=== PATIENT | male | born 1930 | race Two or more races ===

== ENCOUNTER 2017-04-22 18:32 | Emergency (ER) | payer MEDICARE, MEDICAID ==
[~2017-04-22] VITALS: Ht 160 cm; Wt 54.4 kg
[2017-04-22] MEDS ORDERED: NITROGLYCERIN 0.2MG/HR TOPICAL PATCH TD ONE (19:00)
[2017-04-22] MEDS ORDERED: ONDANSETRON HCL 4 MG/2 ML VIAL IV ONE (19:00)
[2017-04-22] MEDS ORDERED: MORPHINE SULF INJ 2 MG/ML SYRINGE 1ML IV ONE ×2 (19:00→23:00)
[2017-04-22 19:22] LABS: Basophils # (auto) 0.1 uL; Basophils % (auto) 0.4 % (0.0-2.0); Eosinophils # (auto) 0.1 uL; Eosinophils % (auto) 0.7 % (0.0-7.0); Hematocrit 49.7 % (41.0-53.0); Hemoglobin 16.4 g/dL (13.5-17.5); Lymphocytes # (auto) 1.3 uL; Lymphocytes % (auto) 10.7 % (10.0-50.0); Mean Corpuscular Hemoglobin 31.9 pg (28.0-32.0); Mean Corpuscular Volume 96.6 fL (80.0-100.0); Monocytes # (auto) 0.6 uL; Monocytes % (auto) 4.6 % (0.0-12.0); Neutrophils # (auto) 10.5 uL; Neutrophils % (auto) 83.6 % (37.0-80.0); Platelet Count (auto) 362 10^3/uL (140-450); Red Cell Distribution Width 16.7 % (11.8-14.3); White Blood Cell 12.6 10^3/uL (4.4-10.8)
[2017-04-22] MEDS ORDERED: ENOXAPARIN SOD 60 MG/0.6 ML SYRINGE SC ONE (19:30)
[2017-04-22 19:40] LABS: Albumin 3.8 g/dL (3.4-5.0); BUN/Creatinine Ratio 15.9; Calcium 9.1 mg/dL (8.5-10.1); Potassium 4.6 mmol/L (3.5-5.1)
[2017-04-22 19:45] LABS: Bilirubin, Total 0.7 mg/dL (0.2-1.0); Total Protein 9.1 g/dL (6.4-8.2)
[2017-04-22] MEDS ORDERED: PANTOPRAZOLE 40 MG/10 ML VIAL IV ONE ×2 (20:02→20:15)
[2017-04-22 20:20] LABS: INR 1.01 (0.9-1.15); Partial Thromboplastin Time 30.3 sec (22.64-33.71)
[2017-04-22 22:00] LABS: Temperature: 22.4 C (20.0-25.0)
[2017-04-22] MEDS ORDERED: LEVOFLOXACIN 750MG 150 ML IV ONE (23:45)
[2017-04-23 01:15] VITALS: BP 118/69
[2017-04-23] MEDS ORDERED: HYDROmorphone HCL 2 MG/ML VL IV ONE (01:45)
[2017-04-23] MEDS ORDERED: ONDANSETRON HCL 4 MG/2 ML VIAL IV ONE (01:45)
[2017-04-23] MEDS ORDERED: MORPHINE SULF INJ 2 MG/ML SYRINGE 1ML IV ONE (02:00)
== END 2017-04-23 02:34 | disposition short-term general hospital (02) ==
LOC: ER 18:32
DX: I73.9 Peripheral vascular disease, unspecified (principal); J18.9 Pneumonia, unspecified organism; M79.662 Pain in left lower leg; J45.909 Unspecified asthma, uncomplicated; I10 Essential (primary) hypertension
CPT/HCPCS: 36415; 71020; 80053; 83880; 84484; 85025; 85379; 85610; 85730; 87040; 93005; 93926; 96365; 96366; 96372; 96375; 96376; 99285; C9113; J1650; J1956; J2270; J2405

== ENCOUNTER 2017-05-27 18:22 | Inpatient (IN) | payer MEDICAID, MEDICARE ==
[~2017-05-27] VITALS: Ht 160 cm; Wt 56.6 kg
[2017-05-27] MEDS ORDERED: methylPREDNISolone SOD SUCC 125 MG/2 ML VL IV ONE (18:45)
[2017-05-27] MEDS ORDERED: ALBUTEROL SULF 2.5 MG/0.5ML(0.5%) NEB SOLN HHN ONE (19:00)
[2017-05-27] MEDS ORDERED: IPRATROPIUM BROM 0.5 MG/2.5ML INH SOL HHN ONE (19:00)
[2017-05-27] MEDS ORDERED: MORPHINE SULF INJ 2 MG/ML SYRINGE 1ML IV ONE ×2 (20:45→22:45)
[2017-05-27] MEDS ORDERED: ONDANSETRON HCL 4 MG/2 ML VIAL IV ONE ×2 (20:45→22:45)
[2017-05-27 20:52] LABS: Basophils # (auto) 0 uL; Basophils % (auto) 0.3 % (0.0-2.0); Hemoglobin 13.3 g/dL (13.5-17.5); Lymphocytes # (auto) 0.4 uL; Monocytes # (auto) 0.2 uL
[2017-05-27 20:53] LABS: Eosinophils # (auto) 0 uL; Eosinophils % (auto) 0.4 % (0.0-7.0); Hematocrit 39.8 % (41.0-53.0); Lymphocytes % (auto) 2.8 % (10.0-50.0); Mean Corpuscular Hemoglobin 31.5 pg (28.0-32.0); Mean Corpuscular Hgb Conc. 33.3 g/dL (32.0-36.0); Mean Corpuscular Volume 94.4 fL (80.0-100.0); Monocytes % (auto) 1.9 % (0.0-12.0); Neutrophils # (auto) 12.1 uL; Neutrophils % (auto) 94.6 % (37.0-80.0); Platelet Count (auto) 577 10^3/uL (140-450); Red Blood Cells 4.21 10^6/uL (4.5-5.90); Red Cell Distribution Width 16.3 % (11.8-14.3); White Blood Cell 12.8 10^3/uL (4.4-10.8)
[2017-05-27] MEDS ORDERED: cefTRIAXone 1GM/10ml IVPUSH 10 ML IV ONE (21:15)
[2017-05-27] MEDS ORDERED: AZITHROMYCIN 500MG/ 250ML 250 ML IV ONE ×2 (21:15→23:45)
[2017-05-27 21:30] LABS: BUN/Creatinine Ratio 20.8; Bilirubin, Total 0.4 mg/dL (0.2-1.0); Calcium 8.8 mg/dL (8.5-10.1); Potassium 5.4 mmol/L (3.5-5.1); Total Protein 8.3 g/dL (6.4-8.2)
[2017-05-27 22:37] VITALS: BP 111/66
[2017-05-27] MEDS ORDERED: ASPirin 81 mg TAB PO ONE (22:45)
[2017-05-27] MEDS ORDERED: ACETAMINOPHEN 325 MG TAB PO PRN (23:45)
[2017-05-27] MEDS ORDERED: ENOXAPARIN SOD 30 MG/0.3 ML SYRINGE SC ONE (23:45)
[2017-05-27] MEDS ORDERED: NITROGLYCERIN 0.4 MG SL TAB SL PRN (23:45)
[2017-05-28] VITALS (7 sets, daily range): BP systolic 86–132; BP diastolic 41–76
[2017-05-28 06:27] LABS: Basophils # (auto) 0 uL; Basophils % (auto) 0.2 % (0.0-2.0); Eosinophils # (auto) 0 uL; Lymphocytes # (auto) 0.3 uL; Neutrophils # (auto) 6.6 uL
[2017-05-28 06:30] LABS: Hematocrit 36.7 % (41.0-53.0); Hemoglobin 12.2 g/dL (13.5-17.5); Lymphocytes % (auto) 4.7 % (10.0-50.0); Mean Corpuscular Hemoglobin 31.3 pg (28.0-32.0); Mean Corpuscular Hgb Conc. 33.3 g/dL (32.0-36.0); Monocytes # (auto) 0.1 uL; Neutrophils % (auto) 93.1 % (37.0-80.0); Platelet Count (auto) 509 10^3/uL (140-450); Red Blood Cells 3.91 10^6/uL (4.5-5.90); Red Cell Distribution Width 16.2 % (11.8-14.3); White Blood Cell 7.1 10^3/uL (4.4-10.8)
[2017-05-28 06:47] LABS: Albumin 2.6 g/dL (3.4-5.0); BUN/Creatinine Ratio 22.9; Bilirubin, Total 0.3 mg/dL (0.2-1.0); Calcium 8.7 mg/dL (8.5-10.1); Potassium 5.3 mmol/L (3.5-5.1); Total Protein 7.6 g/dL (6.4-8.2)
[2017-05-28] MEDS: MORPHINE SULF INJ 2 MG/ML SYRINGE 1ML IV PRN ×5 (06:56→23:18)
[2017-05-28 08:22] LABS: Urine Bacteria NONE SEEN /hpf (None Seen); Urine Blood TRACE /uL (Negative); Urine Hyaline Cast FEW /lpf (0 - 2); Urine Mucus FEW (None Seen); Urine Specific Gravity 1.019 (1.001-1.035); Urine WBC 1 /hpf (0 - 3)
[2017-05-28] MEDS ORDERED: LISINOPRIL 10 MG TAB PO SCH (10:00)
[2017-05-28] MEDS ORDERED: ENOXAPARIN SOD 30 MG/0.3 ML SYRINGE SC SCH (10:00)
[2017-05-28] MEDS: ASPirin 81 mg TAB PO SCH (10:39)
[2017-05-28] MEDS: FAMOTIDINE 20 MG TAB PO SCH (10:39)
[2017-05-28] MEDS: methylPREDNISolone SOD SUCC 125 MG/2 ML VL IV SCH ×2 (10:39→22:10)
[2017-05-28] MEDS: ONDANSETRON HCL 4 MG/2 ML VIAL IV PRN (12:54)
[2017-05-28] MEDS ORDERED: ENOXAPARIN SOD 30 MG/0.3 ML SYRINGE SC ONE (15:45)
[2017-05-28] MEDS ORDERED: cefTRIAXone 1GM/10ml IVPUSH 10 ML IV SCH (22:00)
[2017-05-28] MEDS: ATORVASTATIN 20 MG TAB PO SCH (22:10)
[2017-05-28] MEDS: AZITHROMYCIN 500MG/ 250ML 250 ML IV SCH (22:10)
[2017-05-29 04:16] VITALS: BP 111/54
[2017-05-29] MEDS: ONDANSETRON HCL 4 MG/2 ML VIAL IV PRN ×2 (05:55→12:49)
[2017-05-29] MEDS: MORPHINE SULF INJ 2 MG/ML SYRINGE 1ML IV PRN ×2 (05:55→12:50)
[2017-05-29 06:10] VITALS: BP 106/59
[2017-05-29 06:31] LABS: Hematocrit 35.5 % (41.0-53.0); Hemoglobin 11.6 g/dL (13.5-17.5); Mean Corpuscular Hgb Conc. 32.8 g/dL (32.0-36.0); Mean Corpuscular Volume 94.4 fL (80.0-100.0); Platelet Count (auto) 550 10^3/uL (140-450); Red Blood Cells 3.76 10^6/uL (4.5-5.90); Red Cell Distribution Width 16.2 % (11.8-14.3); White Blood Cell 15.2 10^3/uL (4.4-10.8)
[2017-05-29 06:40] LABS: Calcium 8.5 mg/dL (8.5-10.1)
[2017-05-29 06:41] LABS: BUN/Creatinine Ratio 30.9
[2017-05-29 06:44] LABS: Band Neutrophils % (manual) 0; Basophils % (manual) 0 (0.0-2.0); Blast Cells 0; Eosinophils % (manual) 0 (0-7); Metamyelocytes % 0; Myelocytes % 0; Promyelocytes % 0; Reactive Lymphocytes 0
[2017-05-29 06:47] LABS: Potassium 5.8 mmol/L (3.5-5.1)
[2017-05-29] MEDS ORDERED: SODIUM POLYSTYRENE SULF 15GM/60ML SUSP PO ONE ×2 (07:45→08:30)
[2017-05-29] MEDS ORDERED: DEXTROSE (50%) 50ML SYRG IV ONE ×2 (07:45→08:30)
[2017-05-29] MEDS ORDERED: InsuLIN REG 1unit/0.01ml Soln (100units/ml) IV ONE ×2 (07:45→08:30)
[2017-05-29] MEDS ORDERED: CALCIUM GLUC 4.65meq/50ml D5AE 50 ML IV ONE ×2 (07:45→08:30)
[2017-05-29 08:05] LABS: Lymphocytes % (manual) 2 (10.0-50.0); Monocytes % (manual) 1 (0-12)
[2017-05-29] MEDS ORDERED: ALBUTEROL SULF 2.5 MG/0.5ML(0.5%) NEB SOLN NEB ONE (08:30)
[2017-05-29] MEDS ORDERED: SODIUM BICARBONATE 8.4% INJ 50ML SYRINGE IV ONE (08:30)
[2017-05-29 08:53] VITALS: BP 126/64
[2017-05-29] MEDS ORDERED: FUROSEMIDE 100 MG/10ML VIAL IV ONE (09:30)
[2017-05-29] MEDS: ASPirin 81 mg TAB PO SCH (10:14)
[2017-05-29] MEDS: FAMOTIDINE 20 MG TAB PO SCH (10:14)
[2017-05-29] MEDS: methylPREDNISolone SOD SUCC 125 MG/2 ML VL IV SCH ×2 (10:14→22:41)
[2017-05-29] MEDS: ENOXAPARIN SOD 60 MG/0.6 ML SYRINGE SC SCH (10:15)
[2017-05-29 12:21] VITALS: BP 99/52
[2017-05-29] MEDS: PIPERACILLIN-TAZOB 3.375GM 50 ML IV SCH ×3 (12:46→23:56)
[2017-05-29 13:34] LABS: BUN/Creatinine Ratio 27.4; Calcium 9.1 mg/dL (8.5-10.1); Potassium 4.8 mmol/L (3.5-5.1)
[2017-05-29 14:12] VITALS: BP 101/63
[2017-05-29] MEDS ORDERED: PROMETHAZINE HCL 25 MG/ML 1ML ONE (15:11)
[2017-05-29] MEDS ORDERED: PROMETHAZINE HCL 25 MG/ML 1ML IV ONE (15:15)
[2017-05-29] MEDS: HYDROcodone-ACET 5/325MG TAB PO PRN (15:31)
[2017-05-29 16:08] LABS: INR 1.09 (0.9-1.15); Prothrombin Time 11.9 sec (9.37-12.3)
[2017-05-29] MEDS: IPRATROPIUM BROM 0.5 MG/2.5ML INH SOL NEB PRN (19:19)
[2017-05-29] MEDS: ALBUTEROL SULF 2.5 MG/0.5ML(0.5%) NEB SOLN NEB PRN (19:19)
[2017-05-29 19:35] LABS: Potassium 5.1 mmol/L (3.5-5.1)
[2017-05-29 19:37] LABS: BUN/Creatinine Ratio 24.8; Calcium 8.6 mg/dL (8.5-10.1)
[2017-05-29] MEDS: ATORVASTATIN 20 MG TAB PO SCH (22:33)
[2017-05-29] MEDS: AZITHROMYCIN 500MG/ 250ML 250 ML IV SCH (22:41)
[2017-05-30 06:30] LABS: Basophils # (auto) 0 uL; Eosinophils # (auto) 0 uL; Lymphocytes # (auto) 0.3 uL
[2017-05-30 06:32] LABS: Hematocrit 33.7 % (41.0-53.0); Hemoglobin 10.7 g/dL (13.5-17.5); Lymphocytes % (auto) 1.7 % (10.0-50.0); Mean Corpuscular Hemoglobin 30.1 pg (28.0-32.0); Mean Corpuscular Hgb Conc. 31.8 g/dL (32.0-36.0); Mean Corpuscular Volume 94.7 fL (80.0-100.0); Monocytes # (auto) 0.2 uL; Monocytes % (auto) 1.5 % (0.0-12.0); Neutrophils # (auto) 15.6 uL; Neutrophils % (auto) 96.8 % (37.0-80.0); Platelet Count (auto) 520 10^3/uL (140-450); Red Blood Cells 3.56 10^6/uL (4.5-5.90); Red Cell Distribution Width 16.4 % (11.8-14.3); White Blood Cell 16.1 10^3/uL (4.4-10.8)
[2017-05-30 06:44] LABS: Albumin 2.3 g/dL (3.4-5.0); BUN/Creatinine Ratio 26.6; Bilirubin, Total 0.3 mg/dL (0.2-1.0); Calcium 8.1 mg/dL (8.5-10.1); Phosphorus 3.6 mg/dL (2.5-4.90); Potassium 4.8 mmol/L (3.5-5.1); Total Protein 6.8 g/dL (6.4-8.2); Uric Acid 8.1 mg/dL (3.5-7.2)
[2017-05-30] MEDS: PIPERACILLIN-TAZOB 3.375GM 50 ML IV SCH ×3 (07:39→19:00)
[2017-05-30] MEDS: MORPHINE SULF INJ 2 MG/ML SYRINGE 1ML IV PRN ×3 (07:51→20:50)
[2017-05-30] MEDS: ONDANSETRON HCL 4 MG/2 ML VIAL IV PRN ×2 (07:53→20:50)
[2017-05-30 08:01] VITALS: BP 134/58
[2017-05-30] MEDS: methylPREDNISolone SOD SUCC 125 MG/2 ML VL IV SCH ×2 (11:50→22:00)
[2017-05-30] MEDS: ASPirin 81 mg TAB PO SCH (11:50)
[2017-05-30] MEDS: FAMOTIDINE 20 MG TAB PO SCH (11:50)
[2017-05-30] MEDS: ENOXAPARIN SOD 60 MG/0.6 ML SYRINGE SC SCH (11:50)
[2017-05-30 13:02] VITALS: BP 132/66
[2017-05-30 14:01] VITALS: BP 138/62
[2017-05-30] MEDS ORDERED: D5W/SOD CHLO 0.9% 1,000 ML IV SCH (15:30)
[2017-05-30] MEDS ORDERED: DEXTROSE (50%) 50ML SYRG IV ONE (15:30)
[2017-05-30 15:40] VITALS: BP 103/62
[2017-05-30] MEDS ORDERED: DEXTROSE (50%) 50ML SYRG IV PRN (16:15)
[2017-05-30] MEDS ORDERED: InsuLIN REG 1unit/0.01ml Soln (100units/ml) SC ONE (17:00)
[2017-05-30] MEDS ORDERED: ACCU-CHEK COMFORT CURVE STRIP VI ONE (17:00)
[2017-05-30 17:17] LABS: Urine Bacteria NONE SEEN /hpf (None Seen); Urine Blood TRACE /uL (Negative); Urine Mucus FEW (None Seen); Urine Specific Gravity 1.023 (1.001-1.035); Urine WBC 3 /hpf (0 - 3)
[2017-05-30 17:24] LABS: Creatinine, Urine 88.4 mg/dL (30.0-125.0); Protein, Urine 48.9 mg/dL (0.0-11.9)
[2017-05-30] MEDS: SODIUM CHLORIDE 0.9% 1,000 ML IV SCH (18:29)
[2017-05-30] MEDS: ATORVASTATIN 20 MG TAB PO SCH (22:00)
[2017-05-30] MEDS: AZITHROMYCIN 500MG/ 250ML 250 ML IV SCH (22:26)
[2017-05-31] MEDS: PIPERACILLIN-TAZOB 3.375GM 50 ML IV SCH ×4 (00:30→18:30)
[2017-05-31] MEDS: IPRATROPIUM BROM 0.5 MG/2.5ML INH SOL NEB PRN ×3 (01:57→22:24)
[2017-05-31] MEDS: ALBUTEROL SULF 2.5 MG/0.5ML(0.5%) NEB SOLN NEB PRN ×3 (01:57→22:24)
[2017-05-31] MEDS: SODIUM CHLORIDE 0.9% 1,000 ML IV SCH (03:45)
[2017-05-31] MEDS: MORPHINE SULF INJ 2 MG/ML SYRINGE 1ML IV PRN ×4 (03:46→22:50)
[2017-05-31 07:55] LABS: Hematocrit 31.4 % (41.0-53.0); Hemoglobin 10.4 g/dL (13.5-17.5); Mean Corpuscular Hgb Conc. 33.1 g/dL (32.0-36.0); Mean Corpuscular Volume 93.4 fL (80.0-100.0); Platelet Count (auto) 474 10^3/uL (140-450); Red Blood Cells 3.36 10^6/uL (4.5-5.90); Red Cell Distribution Width 16.3 % (11.8-14.3); White Blood Cell 13.4 10^3/uL (4.4-10.8)
[2017-05-31 08:00] LABS: Band Neutrophils % (manual) 0; Basophils % (manual) 0 (0.0-2.0); Blast Cells 0; Eosinophils % (manual) 0 (0-7); Metamyelocytes % 0; Myelocytes % 0; Promyelocytes % 0; Reactive Lymphocytes 0
[2017-05-31 08:08] LABS: BUN/Creatinine Ratio 28.6; Calcium 8.1 mg/dL (8.5-10.1); Potassium 4.2 mmol/L (3.5-5.1)
[2017-05-31 08:09] LABS: Albumin 2.4 g/dL (3.4-5.0); Bilirubin, Total 0.3 mg/dL (0.2-1.0); Total Protein 6.4 g/dL (6.4-8.2)
[2017-05-31] MEDS: ENOXAPARIN SOD 60 MG/0.6 ML SYRINGE SC SCH (09:42)
[2017-05-31] MEDS: methylPREDNISolone SOD SUCC 125 MG/2 ML VL IV SCH ×2 (09:42→21:56)
[2017-05-31] MEDS: ONDANSETRON HCL 4 MG/2 ML VIAL IV PRN (09:43)
[2017-05-31] MEDS: ASPirin 81 mg TAB PO SCH (10:00)
[2017-05-31] MEDS ORDERED: FAMOTIDINE (10MG/ML) 2ML VL IV ONE (11:03)
[2017-05-31] MEDS: FAMOTIDINE (10MG/ML) 2ML VL IV SCH (11:09)
[2017-05-31 12:39] VITALS: BP 147/62
[2017-05-31] MEDS: SOD CHL 0.45% 1,000 ML IV SCH ×2 (13:35→23:15)
[2017-05-31 15:02] LABS: Lymphocytes % (manual) 3 (10.0-50.0); Monocytes % (manual) 1 (0-12)
[2017-05-31 15:08] VITALS: BP 149/71
[2017-05-31 16:52] VITALS: BP 173/76
[2017-05-31 17:16] VITALS: BP 151/76
[2017-05-31] MEDS: HYDROcodone-ACET 5/325MG TAB PO PRN (17:41)
[2017-05-31 21:00] VITALS: BP 138/75
[2017-05-31] MEDS: ATORVASTATIN 20 MG TAB PO SCH (21:54)
[2017-05-31] MEDS: AZITHROMYCIN 500MG/ 250ML 250 ML IV SCH (21:55)
[2017-06-01] MEDS: PIPERACILLIN-TAZOB 3.375GM 50 ML IV SCH ×3 (00:37→12:30)
[2017-06-01] MEDS: HYDROcodone-ACET 5/325MG TAB PO PRN ×3 (05:27→20:18)
[2017-06-01 05:29] VITALS: BP 148/75
[2017-06-01] MEDS: ASPirin 81 mg TAB PO SCH (06:52)
[2017-06-01 06:53] LABS: Basophils # (auto) 0 uL; Eosinophils # (auto) 0 uL; Hemoglobin 11.1 g/dL (13.5-17.5); Lymphocytes # (auto) 0.2 uL; Mean Corpuscular Volume 94.3 fL (80.0-100.0)
[2017-06-01] MEDS: methylPREDNISolone SOD SUCC 125 MG/2 ML VL IV SCH ×2 (06:53→21:46)
[2017-06-01] MEDS: FAMOTIDINE (10MG/ML) 2ML VL IV SCH (06:53)
[2017-06-01 06:56] LABS: Basophils % (auto) 0.1 % (0.0-2.0); Hematocrit 34.2 % (41.0-53.0); Mean Corpuscular Hemoglobin 30.7 pg (28.0-32.0); Mean Corpuscular Hgb Conc. 32.5 g/dL (32.0-36.0); Monocytes # (auto) 0.3 uL; Monocytes % (auto) 2.4 % (0.0-12.0); Neutrophils # (auto) 11.4 uL; Neutrophils % (auto) 95.5 % (37.0-80.0); Platelet Count (auto) 515 10^3/uL (140-450); Red Blood Cells 3.62 10^6/uL (4.5-5.90); Red Cell Distribution Width 16.4 % (11.8-14.3); White Blood Cell 11.9 10^3/uL (4.4-10.8)
[2017-06-01 07:09] LABS: Albumin 2.5 g/dL (3.4-5.0); BUN/Creatinine Ratio 28.6; Calcium 8.3 mg/dL (8.5-10.1); Potassium 3.9 mmol/L (3.5-5.1)
[2017-06-01 07:11] LABS: Bilirubin, Total 0.4 mg/dL (0.2-1.0); Total Protein 6.7 g/dL (6.4-8.2)
[2017-06-01 08:09] VITALS: BP 144/90
[2017-06-01] MEDS: SOD CHL 0.45% 1,000 ML IV SCH (09:15)
[2017-06-01] MEDS: ALBUTEROL SULF 2.5 MG/0.5ML(0.5%) NEB SOLN NEB PRN ×2 (11:34→20:20)
[2017-06-01] MEDS: IPRATROPIUM BROM 0.5 MG/2.5ML INH SOL NEB PRN ×2 (11:34→20:20)
[2017-06-01 12:21] LABS: INR 1.05 (0.9-1.15); Partial Thromboplastin Time 32.4 sec (22.64-33.71); Prothrombin Time 11.4 sec (9.37-12.3)
[2017-06-01 13:16] VITALS: BP 113/65
[2017-06-01 16:57] VITALS: BP 133/76
[2017-06-01] MEDS ORDERED: LEVOFLOXACIN 500MG 100 ML IV ONE (17:00)
[2017-06-01] MEDS: ATORVASTATIN 20 MG TAB PO SCH (21:41)
[2017-06-01] MEDS: TEMAZEPAM 15 MG CAP PO PRN (21:41)
[2017-06-01 22:00] VITALS: BP 155/80
[2017-06-02] MEDS ORDERED: LISINOPRIL 10 MG TAB PO ONE (02:30)
[2017-06-02 05:53] VITALS: BP 137/90
[2017-06-02 07:35] LABS: BUN/Creatinine Ratio 25.5; Potassium 3.4 mmol/L (3.5-5.1)
[2017-06-02 09:00] VITALS: BP 131/66
[2017-06-02] MEDS ORDERED: LEVOFLOXACIN 250MG 50 ML IV SCH (10:00)
[2017-06-02] MEDS ORDERED: LISINOPRIL 10 MG TAB PO SCH (10:00)
[2017-06-02] MEDS: methylPREDNISolone SOD SUCC 125 MG/2 ML VL IV SCH ×2 (10:51→22:02)
[2017-06-02] MEDS: LEVOFLOXACIN 250 MG TAB PO SCH (10:52)
[2017-06-02] MEDS: ASPirin 81 mg TAB PO SCH (10:52)
[2017-06-02] MEDS: ISOSORBIDE MONONITRATE 60 MG TAB PO SCH (10:52)
[2017-06-02] MEDS: FAMOTIDINE 20 MG TAB PO SCH (10:53)
[2017-06-02] MEDS: CARVEDILOL 3.125 MG TAB PO SCH ×2 (11:06→22:00)
[2017-06-02 12:00] VITALS: BP 140/78
[2017-06-02 13:07] VITALS: BP 141/78
[2017-06-02] MEDS: HYDROcodone-ACET 5/325MG TAB PO PRN (16:56)
[2017-06-02 17:00] VITALS: BP 128/77
[2017-06-02] MEDS: IPRATROPIUM BROM 0.5 MG/2.5ML INH SOL NEB PRN (19:23)
[2017-06-02] MEDS: ALBUTEROL SULF 2.5 MG/0.5ML(0.5%) NEB SOLN NEB PRN (19:23)
[2017-06-02 21:58] VITALS: BP 106/54
[2017-06-02] MEDS: ATORVASTATIN 20 MG TAB PO SCH (22:02)
[2017-06-02] MEDS: TEMAZEPAM 15 MG CAP PO PRN (22:12)
[2017-06-03 06:02] VITALS: BP 154/102
[2017-06-03 07:42] VITALS: BP 138/69
[2017-06-03] MEDS: FAMOTIDINE 20 MG TAB PO SCH (10:02)
[2017-06-03] MEDS: methylPREDNISolone SOD SUCC 125 MG/2 ML VL IV SCH ×2 (10:02→22:12)
[2017-06-03] MEDS: CARVEDILOL 3.125 MG TAB PO SCH ×2 (10:03→22:00)
[2017-06-03] MEDS: ASPirin 81 mg TAB PO SCH (10:03)
[2017-06-03] MEDS: LEVOFLOXACIN 250 MG TAB PO SCH (10:03)
[2017-06-03] MEDS: ISOSORBIDE MONONITRATE 60 MG TAB PO SCH (10:04)
[2017-06-03] MEDS: HYDROcodone-ACET 5/325MG TAB PO PRN (10:13)
[2017-06-03] MEDS ORDERED: CAR350T (10:14)
[2017-06-03] MEDS ORDERED: OME20T (10:14)
[2017-06-03] MEDS ORDERED: FLUT100I (10:14)
[2017-06-03] MEDS ORDERED: LISI10TA6 (10:14)
[2017-06-03] MEDS ORDERED: ASPI-528 PO (10:14)
[2017-06-03] MEDS ORDERED: OXY5T (10:14)
[2017-06-03] MEDS ORDERED: DABI150C (10:14)
[2017-06-03] MEDS ORDERED: ATOR40TA52 (10:14)
[2017-06-03 12:17] VITALS: BP 145/73
[2017-06-03] MEDS: IPRATROPIUM BROM 0.5 MG/2.5ML INH SOL NEB PRN (16:32)
[2017-06-03] MEDS: ALBUTEROL SULF 2.5 MG/0.5ML(0.5%) NEB SOLN NEB PRN (16:33)
[2017-06-03 16:58] LABS: Eosinophils # (auto) 0 uL; Lymphocytes # (auto) 0.2 uL; Nucleated Red Blood Cells % 0.1 %; Red Blood Cells 3.78 10^6/uL (4.5-5.90)
[2017-06-03 17:00] LABS: Basophils # (auto) 0 uL; Basophils % (auto) 0.2 % (0.0-2.0); Hematocrit 35.6 % (41.0-53.0); Hemoglobin 11.7 g/dL (13.5-17.5); Lymphocytes % (auto) 1.5 % (10.0-50.0); Mean Corpuscular Volume 94.1 fL (80.0-100.0); Monocytes # (auto) 0.3 uL; Monocytes % (auto) 2.6 % (0.0-12.0); Neutrophils # (auto) 11.7 uL; Neutrophils % (auto) 95.7 % (37.0-80.0); Platelet Count (auto) 467 10^3/uL (140-450); Red Cell Distribution Width 16.1 % (11.8-14.3); White Blood Cell 12.2 10^3/uL (4.4-10.8)
[2017-06-03 17:04] VITALS: BP 144/66
[2017-06-03] MEDS: ATORVASTATIN 20 MG TAB PO SCH (22:12)
[2017-06-03 22:43] VITALS: BP 99/55
[2017-06-04 04:48] VITALS: BP 112/58
[2017-06-04 08:00] VITALS: BP 128/68
[2017-06-04] MEDS: HYDROcodone-ACET 5/325MG TAB PO PRN ×3 (08:28→23:39)
[2017-06-04 09:20] VITALS: BP 128/68
[2017-06-04] MEDS: IPRATROPIUM BROM 0.5 MG/2.5ML INH SOL NEB PRN ×2 (09:25→16:46)
[2017-06-04] MEDS: ALBUTEROL SULF 2.5 MG/0.5ML(0.5%) NEB SOLN NEB PRN ×2 (09:25→16:46)
[2017-06-04] MEDS: FAMOTIDINE 20 MG TAB PO SCH (10:38)
[2017-06-04] MEDS: ASPirin 81 mg TAB PO SCH (10:38)
[2017-06-04] MEDS: CARVEDILOL 3.125 MG TAB PO SCH ×2 (10:39→22:17)
[2017-06-04] MEDS: ISOSORBIDE MONONITRATE 60 MG TAB PO SCH (10:39)
[2017-06-04] MEDS: LEVOFLOXACIN 250 MG TAB PO SCH (10:40)
[2017-06-04] MEDS: methylPREDNISolone SOD SUCC 125 MG/2 ML VL IV SCH ×2 (10:40→22:17)
[2017-06-04 12:11] VITALS: BP 118/52
[2017-06-04 17:06] VITALS: BP 100/53
[2017-06-04] MEDS: ATORVASTATIN 20 MG TAB PO SCH (22:18)
[2017-06-04 23:42] VITALS: BP 114/69
[2017-06-05] VITALS (7 sets, daily range): BP systolic 120–139; BP diastolic 59–65
[2017-06-05] MEDS ORDERED: LEVOFLOXACIN 250 MG TAB PO SCH (06:45)
[2017-06-05 07:39] LABS: BUN/Creatinine Ratio 34.7; Calcium 7.5 mg/dL (8.5-10.1); Potassium 4.2 mmol/L (3.5-5.1)
[2017-06-05] MEDS: methylPREDNISolone SOD SUCC 125 MG/2 ML VL IV SCH (09:38)
[2017-06-05] MEDS: HYDROcodone-ACET 5/325MG TAB PO PRN ×2 (09:39→13:53)
[2017-06-05] MEDS: ASPirin 81 mg TAB PO SCH (09:39)
[2017-06-05] MEDS: FAMOTIDINE 20 MG TAB PO SCH (09:39)
[2017-06-05] MEDS: ISOSORBIDE MONONITRATE 60 MG TAB PO SCH (09:40)
[2017-06-05] MEDS: CARVEDILOL 3.125 MG TAB PO SCH (09:40)
[2017-06-05] MEDS: ALBUTEROL SULF 2.5 MG/0.5ML(0.5%) NEB SOLN NEB PRN (13:38)
[2017-06-05] MEDS: IPRATROPIUM BROM 0.5 MG/2.5ML INH SOL NEB PRN (13:38)
== END 2017-06-05 18:32 | disposition home health service (06) | DRG 871 ==
LOC: ER 18:22 → EDBD 18:22 → TELE 18:23 → WEST WING 05-31 13:19 → CENTRAL 05-31 14:39 → TELE-CENTR 06-01 00:23
PROVIDERS: ADMIT Nurse Practitioner; ATTEND Family Medicine
PROC: 5A09457 Assistance with Respiratory Ventilation, 24-96 Consecutive Hours, Continuous Positive Airway Pressure (ICD-10-PCS; principal; 2017-05-28)
PROC: 0W993ZZ Drainage of Right Pleural Cavity, Percutaneous Approach (ICD-10-PCS; 2017-05-30)
DX: A41.9 Sepsis, unspecified organism (principal); J96.01 Acute respiratory failure with hypoxia; N17.0 Acute kidney failure with tubular necrosis; I50.43 Acute on chronic combined systolic (congestive) and diastolic (congestive) heart failure; J18.9 Pneumonia, unspecified organism; J90 Pleural effusion, not elsewhere classified; I13.0 Hypertensive heart and chronic kidney disease with heart failure and stage 1 through stage 4 chronic kidney disease, or unspecified chronic kidney disease; J44.0 Chronic obstructive pulmonary disease with (acute) lower respiratory infection; E87.5 Hyperkalemia; N18.4 Chronic kidney disease, stage 4 (severe); J44.1 Chronic obstructive pulmonary disease with (acute) exacerbation; Z99.81 Dependence on supplemental oxygen; I25.10 Atherosclerotic heart disease of native coronary artery without angina pectoris; N18.3 Chronic kidney disease, stage 3 (moderate); I70.0 Atherosclerosis of aorta; Z82.49 Family history of ischemic heart disease and other diseases of the circulatory system; Z87.891 Personal history of nicotine dependence; Z98.61 Coronary angioplasty status; Z95.5 Presence of coronary angioplasty implant and graft; Z79.899 Other long term (current) drug therapy; Z79.82 Long term (current) use of aspirin
CPT/HCPCS: 32555; 36415; 36600; 71045; 71250; 74176; 76604; 76942; 80048; 80053; 81001; 82306; 82570; 82805; 82962; 83605; 83735; 83880; 83970; 84100; 84156; 84300; 84484; 84550; 85007; 85025; 85027; 85379; 85610; 85730; 87040; 87070; 87077; 87081; 87186; 87205; 87400; 89051; 93005; 93306; 93970; 94640; 94660; 96365; 96375; 99291; J0610; J1815; J1956; J2405; J2543; J3490; J7042

== ENCOUNTER 2017-06-11 14:31 | Inpatient (IN) | payer MEDICARE ==
[~2017-06-11] VITALS: Ht 180.3 cm; Wt 68.0 kg
[~2017-06-11 14:31] MED LIST: ASPI-528 PO; ATOR40TA52; CAR350T; DABI150C; FLUT100I; LISI10TA6; OME20T; OXY5T
[2017-06-11] MEDS ORDERED: MIDAZOLAM DRIP 50 mg/50mL 50 ML IV ONE (14:49)
[2017-06-11 15:01] LABS: Red Blood Cells 3.97 10^6/uL (4.5-5.90); White Blood Cell 14.8 10^3/uL (4.4-10.8)
[2017-06-11 15:06] LABS: Hematocrit 40.4 % (41.0-53.0); Hemoglobin 12.8 g/dL (13.5-17.5); Mean Corpuscular Hemoglobin 32.3 pg (28.0-32.0); Mean Corpuscular Hgb Conc. 31.7 g/dL (32.0-36.0); Mean Corpuscular Volume 101.8 fL (80.0-100.0); Platelet Count (auto) 252 10^3/uL (140-450); Red Cell Distribution Width 19.2 % (11.8-14.3)
[2017-06-11] MEDS ORDERED: MIDAZOLAM DRIP 50 mg/50mL 50 ML IV SCH ×2 (15:07→18:42)
[2017-06-11 15:09] LABS: Band Neutrophils % (manual) 0; Basophils % (manual) 0 (0.0-2.0); Blast Cells 0; Promyelocytes % 0; Reactive Lymphocytes 0
[2017-06-11] MEDS ORDERED: SODIUM CHLORIDE 0.9% 1,000 ML IV ONE ×3 (15:15→17:29)
[2017-06-11] MEDS ORDERED: NOREPINEPHRINE 8 MG/250ML KIT 250 ML IV ONE (15:34)
[2017-06-11 15:36] LABS: Eosinophils % (manual) 3 (0-7); Lymphocytes % (manual) 29 (10.0-50.0); Metamyelocytes % 3; Monocytes % (manual) 1 (0-12); Myelocytes % 2
[2017-06-11 15:37] LABS: Albumin 2.2 g/dL (3.4-5.0); BUN/Creatinine Ratio 16.1; Bilirubin, Total 0.4 mg/dL (0.2-1.0); Calcium 8.1 mg/dL (8.5-10.1); Potassium 5.1 mmol/L (3.5-5.1); Total Protein 6.4 g/dL (6.4-8.2)
[2017-06-11] MEDS ORDERED: NOREPINEPHRINE 8 MG/250ML KIT 250 ML IV SCH ×2 (15:45→18:45)
[2017-06-11] MEDS ORDERED: SODIUM CHLORIDE 0.9% 2,000 ML IV ONE ×2 (16:00→19:15)
[2017-06-11] MEDS ORDERED: PIPERACILLIN-TAZOB 3.375GM 50 ML IV ONE (17:30)
[2017-06-11] MEDS ORDERED: VANCOMYCIN PER PHARMACY 0 MG IV SCH ×2 (17:30→18:45)
[2017-06-11] MEDS ORDERED: ENOXAPARIN SOD 80 MG/0.8ML SYRINGE SC ONE (17:30)
[2017-06-11 18:04] LABS: Urine Bacteria None Seen /hpf (None Seen)
[2017-06-11 18:08] LABS: Urine Specific Gravity 1.018 (1.001-1.035)
[2017-06-11 18:09] LABS: Urine Blood 2+ /uL (Negative)
[2017-06-11 18:10] LABS: Urine WBC 2 /hpf (0 - 3)
[2017-06-11 18:25] VITALS: BP 94/48
[2017-06-11] MEDS ORDERED: PROPOFOL 100 ML IV SCH (18:42)
[2017-06-11] MEDS ORDERED: VANCOMYCIN 1GM/250ML 250 ML IV ONE (19:00)
[2017-06-11] MEDS ORDERED: SODIUM CHLORIDE 0.9% 1,000 ML IV SCH (19:08)
[2017-06-11] MEDS ORDERED: MORPHINE SULFATE 10 MG/ML INJ 1ML SDV IV PRN ×2 (19:15)
[2017-06-11] MEDS ORDERED: NITROGLYCERIN 0.4 MG SL TAB SL PRN (19:15)
[2017-06-11] MEDS ORDERED: ONDANSETRON HCL 4 MG/2 ML VIAL IV PRN (19:15)
[2017-06-11] MEDS ORDERED: DEXTROSE (50%) 50ML SYRG IV PRN (19:15)
[2017-06-11 19:29] VITALS: BP 78/59
[2017-06-11] MEDS ORDERED: LORazepam 2MG/ML-1ML VIAL IV ONE (20:45)
[2017-06-11] MEDS ORDERED: SODIUM BICARBONATE 8.4 % INJ 50ML VIAL IV ONE (21:15)
[2017-06-11] MEDS ORDERED: ALBUTEROL SULF 2.5 MG/0.5ML(0.5%) NEB SOLN NEB ONE (21:45)
[2017-06-11] MEDS ORDERED: IPRATROPIUM BROM 0.5 MG/2.5ML INH SOL NEB ONE (21:45)
[2017-06-11 21:54] VITALS: BP 99/53
[2017-06-11 22:20] VITALS: BP 99/44
[2017-06-11] MEDS ORDERED: EPINEPHrine HCL 1 MG/10 ML SYRG IV ONE (22:25)
[2017-06-12] MEDS ORDERED: PIPERACILLIN-TAZOB 2.25GM 50 ML IV SCH
[2017-06-12] MEDS ORDERED: ACCU-CHEK COMFORT CURVE STRIP VI SCH
[2017-06-12] MEDS ORDERED: InsuLIN REG 1unit/0.01ml Soln (100units/ml) SC SCH
[2017-06-12] MEDS ORDERED: ENOXAPARIN SOD 30 MG/0.3 ML SYRINGE SC SCH (10:00)
== END 2017-06-11 22:26 | disposition expired | DRG 871 ==
LOC: EDBD 14:31 → ER 14:31 → TELE 14:32
PROVIDERS: ADMIT Internal Medicine; ATTEND Internal Medicine
PROC: 5A12012 Performance of Cardiac Output, Single, Manual (ICD-10-PCS; principal; 2017-06-11)
PROC: 5A1935Z Respiratory Ventilation, Less than 24 Consecutive Hours (ICD-10-PCS; 2017-06-11)
PROC: 0BH17EZ Insertion of Endotracheal Airway into Trachea, Via Natural or Artificial Opening (ICD-10-PCS; 2017-06-11)
DX: A41.9 Sepsis, unspecified organism (principal); J69.0 Pneumonitis due to inhalation of food and vomit; I46.9 Cardiac arrest, cause unspecified; J96.01 Acute respiratory failure with hypoxia; E44.0 Moderate protein-calorie malnutrition; J44.1 Chronic obstructive pulmonary disease with (acute) exacerbation; E11.21 Type 2 diabetes mellitus with diabetic nephropathy; E11.65 Type 2 diabetes mellitus with hyperglycemia; D63.8 Anemia in other chronic diseases classified elsewhere; E11.22 Type 2 diabetes mellitus with diabetic chronic kidney disease; E78.5 Hyperlipidemia, unspecified; E83.41 Hypermagnesemia; E83.51 Hypocalcemia; F41.9 Anxiety disorder, unspecified; I12.9 Hypertensive chronic kidney disease with stage 1 through stage 4 chronic kidney disease, or unspecified chronic kidney disease; I25.10 Atherosclerotic heart disease of native coronary artery without angina pectoris; N18.3 Chronic kidney disease, stage 3 (moderate); Z98.61 Coronary angioplasty status; Z68.20 Body mass index [BMI] 20.0-20.9, adult
CPT/HCPCS: 31500; 36415; 36600; 51702; 70450; 71045; 74176; 80053; 81001; 82805; 83036; 83605; 83735; 84484; 85007; 85027; 87040; 87070; 87205; 92950; 93005; 94002; 94640; 94761; 96365; 96367; 96372; 99291; J2250; J2543